=== PATIENT | female | born 1975 ===

== ENCOUNTER 2017-05-30 01:20 | Emergency (ER) | payer BC ==
[~2017-05-30] VITALS: Ht 175.3 cm; Wt 53.0 kg
[2017-05-30 02:38] LABS: BASOPHIL (%) 0.4 % (0-1); EOSINOPHIL (%) 2.9 % (0-5); EOSINOPHIL COUNT 0.3 K/uL (0-0.3); HEMATOCRIT 35.7 % (36.0-46.0); HEMOGLOBIN 10.6 G/DL (11.9-15.5); IMMATURE GRANULOCYTE (%) 0.3 % (0.0-0.7); LYMPHOCYTE (%) 20.1 % (15-42); LYMPHOCYTE COUNT 2.3 K/uL (1.0-2.8); MCH 21.8 PG (29.0-34.0); MCHC 29.7 G/DL (30.0-36.0); MCV 73.5 FL (83-99); MONOCYTE (%) 5.8 % (3-12); MONOCYTE COUNT 0.7 K/uL (0-0.8); NEUTROPHIL (%) 70.5 % (45-76); PLATELET COUNT 237 K/uL (156-360); RBC DIS.WIDTH-CV 16.8 % (11.8-14.6); RBC DIS.WIDTH-SD 44.7 % (39-53); RED BLOOD COUNT 4.86 M/uL (3.80-5.20); WHITE BLOOD COUNT 11.3 K/uL (4.1-10.2)
[2017-05-30 02:40] LABS: CHLORIDE 105 mEq/L (99-109); POTASSIUM 3.3 mEq/L (3.7-5.4); SODIUM 137 mEq/L (136-147)
[2017-05-30 02:43] LABS: GLUCOSE 96 mg/dL (70-99)
[2017-05-30 02:45] LABS: TOTAL BILIRUBIN 0.7 mg/dL (0.0-1.0)
[2017-05-30 02:46] LABS: ALKALINE PHOSPHATASE 58 IU/L (3-129); CREATININE 0.8 mg/dL (0.6-1.3); GFR ESTIMATE (CALCULATED) > 59 mL/min/
[2017-05-30 02:47] LABS: UREA NITROGEN (BUN) 19 mg/dL (9-23)
[2017-05-30 02:48] LABS: AST (GOT) 41 IU/L (2-34)
[2017-05-30 02:49] LABS: ALT (GPT) 20 IU/L (3-49)
[2017-05-30 02:50] LABS: LIPASE 35 U/L (1.0-51.0)
[2017-05-30 02:53] LABS: TROP-I INTERPRETATION NEGATIVE; TROPONIN-I < 0.01 ng/mL (0.0-0.30)
[2017-05-30 05:56] LABS: TROP-I INTERPRETATION NEGATIVE; TROPONIN-I 0.02 ng/mL (0.0-0.30)
[2017-05-30] MEDS ORDERED: PRILOSEC20 MG PO (06:19)
[2017-05-30 06:34] VITALS: BP 124/80
== END 2017-05-30 06:35 | disposition home or self-care (01) ==
LOC: EME 01:20
PROVIDERS: Emergency Medicine
DX: R10.13 Epigastric pain (principal); R07.9 Chest pain, unspecified; K21.9 Gastro-esophageal reflux disease without esophagitis
CPT/HCPCS: 71046; 80053; 83690; 84484; 85025; 93005; 99281; 99285